=== PATIENT | male | born 1970 | race Caucasian/White ===

== ENCOUNTER 2020-04-28 15:38 | Emergency (ER) | payer OTHER, SELFPAY ==
--- NOTE | 2020-04-28 16:03 | DI.RAD.S_ITS ---
PROCEDURE: XR SHOULDER RT MIN 2V INDICATIONS: R shoulder pain after FOOSH TECHNIQUE: 3 views of the shoulder were acquired. COMPARISON: None. FINDINGS: Bones: No fractures or dislocations but there is moderate osteoarthritis at the AC joint.. No suspicious bony lesions. Visualized ribs appear intact. Soft tissues: No suspicious soft tissue calcifications. IMPRESSION: Moderate AC joint osteoarthritis without fracture or traumatic dislocation. Dictated by: Garry Flores M.D. on 04/28/2020 at 16:40 Approved by: Garry Flores M.D. on 04/28/2020 at 16:41
[2020-04-28 16:06] VITALS: BP 150/86; PULSE 63; RESP 16; TEMP 37.1; O2SAT 96
--- NOTE | 2020-04-28 16:17 | ED_ITS ---
HPI - Extremity Injury (Upper) <DENISE Canela - Last Filed: 04/28/20 20:46> General Chief Complaint: Extremity Injury, Upper Stated Complaint: states dislocated right arm Time Seen by Provider: 04/28/20 15:52 Source: patient Mode of arrival: Ambulatory Limitations: no limitations History of Present Illness HPI narrative: 49-year-old male presents to the emergency department for right shoulder pain post fall. He states he was walking and tripped and fell with his right arm outstretched. He reports right shoulder pain that is worse with movement and is tender to the touch. He denies any history of shoulder dislocation but thinks he may have dislocated shoulder. He denies any elbow pain, wrist pain, or hand pain. Patient denies hitting his head, denies neck pain, fevers, chills, syncope, dizziness, chest pain, or any other concerns. Related Data Allergies Allergy/AdvReac Type Severity Reaction Status Date / Time No Known Drug Allergies Allergy Verified 04/28/20 16:06 Review of Systems <DENISE Canela - Last Filed: 04/28/20 20:46> Review of Systems Narrative: REVIEW OF SYSTEMS: GENERAL: Denies fever or chills. HENT: No head trauma. EYES: No vision changes. CARDIOVASCULAR: No chest pain or syncope. RESPIRATORY: No shortness of breath. GASTROINTESTINAL: No nausea, vomiting, diarrhea, or constipation. MUSCULOSKELETAL: Complains of right shoulder pain, see HPI. INTEGUMENTARY: No rash, lesions, or pruritus. NEURO: No numbness, tingling. PSYCH: No behavior or mood changes. Patient History <DENISE Canela - Last Filed: 04/28/20 20:46> Medical History No significant medical problems (Acute) Social History Smoking Status: Never smoker Smoking Status: Never smoker alcohol intake frequency: 0-2 drinks per day Substance Use Type: does not use Exam <DENISE Canela - Last Filed: 04/28/20 20:46> Initial Vital Signs Initial Vital Signs: Vital Signs Temperature 98.8 F 04/28/20 16:06 Pulse Rate 63 04/28/20 16:06 Respiratory Rate 16 04/28/20 16:06 Blood Pressure 150/86 H 04/28/20 16:06 Pulse Oximetry 96 04/28/20 16:06 PHYSICAL EXAMINATION: GENERAL: Well groomed, alert, and cooperative. Answers questions promptly and appropriately. Vital signs noted. HENT: Normocephalic, atraumatic. EYES: Symmetrical, sclera white, no periorbital swelling. CARDIOVASCULAR: Regular rate. RESPIRATORY: Normal respiratory rate, trachea midline, airway patent. No stridor, nasal flaring or accessory muscle use. MUSCULOSKELETAL: Tenderness to right anterior shoulder, limited range of motion due to pain. Slight elevated head of distal R clavicle. No tenderness to palpation of elbow, wrist, or lower forearm. EXTREMITIES: CMS intact. No pedal edema. SKIN: Warm, dry, soft, appropriate color for ethnicity. No lesions, rashes, or wounds. NEURO: Alert and Oriented X 3. No sensory deficits. PSYCH: Appropriate affect and mood. <DO Anny Reed Last Filed: 04/29/20 07:46> Initial Vital Signs Initial Vital Signs: Vital Signs Temperature 98.8 F 04/28/20 16:06 Pulse Rate 63 04/28/20 16:06 Respiratory Rate 16 04/28/20 16:06 Blood Pressure 150/86 H 04/28/20 16:06 Pulse Oximetry 96 04/28/20 16:06 Course <DENISE Canela - Last Filed: 04/28/20 20:46> Orders Ordered: ED Orders 04/28/20 16:03 XR shoulder RT min 2V Stat Vital Signs Vital signs: Vital Signs - 8 hr 04/28/20 16:06 04/28/20 17:16 Temperature 98.8 F Pulse Rate 63 72 Respiratory Rate 16 15 Blood Pressure 150/86 H 149/75 H Pulse Oximetry 96 98 <DO Anny Reed Last Filed: 04/29/20 07:46> Orders Ordered: ED Orders 04/28/20 16:03 XR shoulder RT min 2V Stat Vital Signs Vital signs: Vital Signs - 8 hr 04/28/20 16:06 04/28/20 17:16 Temperature 98.8 F Pulse Rate 63 72 Respiratory Rate 16 15 Blood Pressure 150/86 H 149/75 H Pulse Oximetry 96 98 MDM - Extremity Injury (Upper) <DENISE Canela - Last Filed: 04/28/20 20:46> Medical Records Attestation: I reviewed the patient's medical records. Lab Data Attestation: I reviewed the patient's lab results. Imaging Data Extremity x-ray #1: Radiologist's Impression: [address] [address] XRay Report Signed Patient: Delvin Villalba PMR#: [id number] : 1970Acct:[id number] Age/Sex: 49 / MDate of Service: 04/28/20 Loc: ED Accession Number: [id number] Procedure: XR shoulder RT min 2V Ordering Provider: Mariola Hernandez PROCEDURE: XR SHOULDER RT MIN 2V INDICATIONS: R shoulder pain after FOOSH TECHNIQUE: 3 views of the shoulder were acquired. COMPARISON: None. FINDINGS: Bones: No fractures or dislocations but there is moderate osteoarthritis at the AC joint.. No suspicious bony lesions. Visualized ribs appear intact. Soft tissues: No suspicious soft tissue calcifications. IMPRESSION: Moderate AC joint osteoarthritis without fracture or traumatic dislocation. Dictated by: Garry Flores M.D. on 04/28/2020 at 16:40 Approved by: Garry Flores M.D. on 04/28/2020 at 16:41 [facility] Narrative Medical decision making narrative: 49-year-old male presents emergency department for right shoulder pain after a fall. X-ray negative for any fractures or dislocations. Reveals AC joint osteoarthritis, possible small AC chair due to examination. Less concern for elbow, wrist, or an etiology due to lack of pain or visible trauma. Patient was referred to an orthopedic if he does not have a primary care provider. Was encouraged to follow up with L and I as well to discuss protocol. Patient was given a sling to help with pain. Return precautions given for new or worsening symptoms. Patient agreed to plan of care verbalized understanding. Discharge Plan Departure Patient Disposition: Home Clinical Impression: AC (acromioclavicular) arthritis Qualifiers: Laterality: right Qualified Code(s): M19.011 - Primary osteoarthritis, right shoulder Acromioclavicular joint separation Qualifiers: Encounter type: initial encounter Laterality: right Qualified Code(s): S43.101A - Unspecified dislocation of right acromioclavicular joint, initial encounter Discharge Date/Time: 04/28/20 17:45 Activity Restrictions/Additional Instructions: Thank you for entrusting me with your care today. As discussed, your x-ray shows AC arthritis and a possible small tear, this is a ligament at a touches your collarbone to your shoulder. This will most likely improve with time. However, I did refer you to an orthopedic as you do not have a primary care provider for further follow-up and evaluation if symptoms continue. You may use the sling as needed for pain, please remove the sling multiple times a day and move your wrist and hand to prevent this shrinkage of your muscles. Return emergency department for any new or worsening symptoms. Referrals: Bri Barrow MD [Non-Staff] - <Verito Patel DO - Last Filed: 04/29/20 07:46> Cosign ED Attending Cosraiature Attestation: I was immediately available in the department for consultation. Documentation has been reviewed. I agree with as sesdemarco and plan.
[2020-04-28 17:16] VITALS: BP 149/75; PULSE 72; RESP 15; O2SAT 98
== END 2020-04-28 17:45 | disposition home or self-care (01) ==
PROVIDERS: Emergency Provider Nurse Practitioner
DX: S43.101A Unspecified dislocation of right acromioclavicular joint, initial encounter (principal); M19.011 Primary osteoarthritis, right shoulder; W01.0XXA Fall on same level from slipping, tripping and stumbling without subsequent striking against object, initial encounter; Y99.0 Civilian activity done for income or pay
CPT/HCPCS: 73030; 99283